=== PATIENT | male | born 1975 | race Caucasian/White ===

== ENCOUNTER 2020-11-29 11:24 | Emergency (ER) | payer OTHER ==
[~2020-11-29 11:24] MED LIST: BENTYL 20MG TAB20 MG PO; CITRATE OF MAG296 ML PO; COLACE100 MG PO; LODINE CAP 300300 MG PO; MIRALAX17 GM PO; MOBIC7.5 MG PO; PHENERGAN 12.12.5 MG PR; PRILOSEC OTC20 MG PO; ZOFRAN ODT 4 MG4 MG PO; ZOFRAN4 MG PO; ZYVOX600 MG PO
[2020-11-29] MEDS ORDERED: BACTRIM DS TAB1 EACH PO (13:13)
[2020-11-29] MEDS ORDERED: CEPHALEXIN500 M1 PO (13:13)
[2020-11-29] MEDS ORDERED: NAPROSYN500 MG PO (13:13)
== END 2020-11-29 14:37 | disposition home or self-care (01) ==
LOC: ER1 11:24
DX: L02.214 Cutaneous abscess of groin (principal); L02.416 Cutaneous abscess of left lower limb; F17.200 Nicotine dependence, unspecified, uncomplicated
CPT/HCPCS: 10060; 99282